=== PATIENT | male | born 1950 | race Caucasian/White ===

== ENCOUNTER → 2018-03-03 10:11 | Outpatient (CLI) | payer MEDICARE, BC | END | disposition home or self-care (01) | LOC: D.CT 10:11 | DX: J44.9 Chronic obstructive pulmonary disease, unspecified (principal) ==

== ENCOUNTER 2019-02-23 08:38 | Outpatient (CLI) | payer MEDICARE, BC ==
[~2019-02-23] VITALS: Ht 177.8 cm; Wt 91.8 kg
[2019-02-23 09:52] VITALS: BP 142/73; Ht 177.8 cm; Wt 91.8 kg
== END 2019-02-23 11:20 | disposition home or self-care (01) ==
LOC: D.CT 08:38
PROVIDERS: ATTEND Family Medicine
DX: N28.1 Cyst of kidney, acquired (principal)